=== PATIENT | female | born 1945 | race Caucasian/White ===

== ENCOUNTER 2020-04-17 19:26 | Inpatient (IN) ==
[2020-04-17] MEDS ORDERED: Ondansetron 4 MG/2 ML VIAL IVP PRN (23:20)
[2020-04-17] MEDS ORDERED: Naloxone 0.4 MG/ML INJ IVP PRN (23:20)
[2020-04-17] MEDS ORDERED: Ringers Solution, Lactated 1,000 ML IVC SCH (23:30)
[2020-04-18 02:58] LABS: Hematocrit 43.4 % (35.3-44.9); Hemoglobin 14.3 g/dL (11.5-15.4); Lymphocytes # 0.7 K/mcL (0.6-4.6); Lymphocytes % 16.8 %; Mean Corpuscular HGB Conc 32.9 g/dL (31.6-35.5); Mean Corpuscular Hemoglobin 30.4 pg (28.0-33.3); Mean Corpuscular Volume 92.3 fL (83.0-100.0); Mean Platelet Volume 11.5 fL (9.4-12.4); Monocytes # 0.1 K/mcL (0.0-1.3); Monocytes % 3.3 %; Red Cell Distribution Width 12.8 % (11.5-14.5); Segmented Neutrophils % 79.9 %; White Blood Count 3.9 K/mcL (4.3-11.1)
[2020-04-18 02:59] LABS: Neutrophils # 3.1 K/mcL (1.6-8.9); Platelet Count 95 K/mcL (140-400)
[2020-04-18 03:06] LABS: INR 1.1; Prothrombin Time 12.3 Seconds (9.4-12.1)
[2020-04-18 03:42] LABS: Ferritin 1233 ng/mL (10-120); Troponin I < 0.03 ng/mL (< 0.04)
[2020-04-18 03:54] LABS: Alanine Aminotransferase 17 Units/L (7-52); Albumin 3.6 g/dL (3.5-5.7); Albumin/Globulin Ratio 1.1 (1.1-2.2); Alkaline Phosphatase 78 Units/L (34-104); Aspartate Amino Transferase 37 Units/L (13-39); BUN/Creatinine Ratio 27 (6-26); Bilirubin,Total 0.4 mg/dL (0.3-1.0); Blood Urea Nitrogen 33 mg/dL (8-23); C-Reactive Protein 87 mg/L (Less than 10); Calcium 8.6 mg/dL (8.6-10.3); Carbon Dioxide 16 mEq/L (23-29); Chloride 107 mEq/L (98-107); Globulin 3.3 g/dL (2.4-3.5); Glucose 164 mg/dL (70-105); Lactate Dehydrogenase 335 Units/L (140-271); Magnesium 1.8 mg/dL (1.6-2.6); Osmolality,Calculated 297 (280-300); Phosphorous 4.2 mg/dL (2.7-4.5); Potassium 4.4 mEq/L (3.5-5.1); Sodium 138 mEq/L (136-145); Total Protein 6.9 g/dL (6.4-8.9); eGFR For African Americans 52 (> 60); eGFR For Non-African Americans 43 (> 60)
[2020-04-18] MEDS: *HR* Enoxaparin 40 MG/0.4 ML SYRINGE SQ SCH (05:13)
[2020-04-18] MEDS ORDERED: GuaiFENesin/Dextromethorphan TABLET PO PRN (07:45)
[2020-04-18] MEDS ORDERED: Dexamethasone Sodium Phos/PF 10 MG/ML VIAL IVP SCH (09:00)
[2020-04-18 11:43] LABS: Protein/Creatinine Ratio,Urine 0.38 mg/mg (0.00-0.20)
[2020-04-18 11:58] LABS: Bacteria,Urine Few per hpf (None-Few); Bilirubin,Urine Negative (Negative); Blood,Urine Small (Negative); Clarity,Urine Turbid (Clear); Color,Urine Yellow (Yellow); Glucose,Urine (UA) Normal (Normal); Ketones,Urine Negative (Negative); Leukocyte Esterase,Urine Large (Negative); Mucus,Urine Few per lpf (None-Few); Nitrite,Urine Positive (Negative); Protein,Urine 30 mg/dL (Neg-Trace); Squamous Epithelial Cell,Urine Few per hpf (None-Few); Urobilinogen,Urine Normal (Normal); WBC,Urine TNTC per hpf (0-3)
[2020-04-18] MEDS ORDERED: Remdesivir 200 MG in 0.9 % Sodium Chloride 100 ML IVPB ONE (17:00)
[2020-04-19 03:39] LABS: Hemoglobin 14.3 g/dL (11.5-15.4); Platelet Count 115 K/mcL (140-400); Red Cell Distribution Width 12.8 % (11.5-14.5)
[2020-04-19 03:41] LABS: Basophils % 0.6 %; Eosinophils % 0.3 %; Hematocrit 45.2 % (35.3-44.9); Immature Granulocytes % 0.6 % (0-4); Lymphocytes % 14.2 %; Mean Corpuscular HGB Conc 31.6 g/dL (31.6-35.5); Mean Corpuscular Hemoglobin 30.5 pg (28.0-33.3); Mean Corpuscular Volume 96.4 fL (83.0-100.0); Mean Platelet Volume 11.7 fL (9.4-12.4); Monocytes # 0.6 K/mcL (0.0-1.3); Monocytes % 8.8 %; Neutrophils # 5.5 K/mcL (1.6-8.9); Red Blood Count 4.69 M/mcL (3.82-4.97); Segmented Neutrophils % 75.5 %; White Blood Count 7.3 K/mcL (4.3-11.1)
[2020-04-19 03:44] LABS: Fibrinogen 448 mg/dL (169-393)
[2020-04-19 03:46] LABS: D-Dimer 1201 ng/mLFEU (0-500)
[2020-04-19 04:07] LABS: Platelet Estimate Slight Decrease (Normal)
[2020-04-19 04:29] LABS: Alanine Aminotransferase 13 Units/L (7-52); Albumin 3.3 g/dL (3.5-5.7); Alkaline Phosphatase 83 Units/L (34-104); Aspartate Amino Transferase 36 Units/L (13-39); BUN/Creatinine Ratio 43 (6-26); Bilirubin,Total 0.4 mg/dL (0.3-1.0); Blood Urea Nitrogen 42 mg/dL (8-23); Calcium 8.5 mg/dL (8.6-10.3); Carbon Dioxide 15 mEq/L (23-29); Chloride 110 mEq/L (98-107); Ferritin 1324 ng/mL (10-120); Globulin 3.2 g/dL (2.4-3.5); Glucose 182 mg/dL (70-105); Lactate Dehydrogenase 380 Units/L (140-271); Osmolality,Calculated 301 (280-300); Phosphorous 2.9 mg/dL (2.7-4.5); Potassium 4.4 mEq/L (3.5-5.1); Sodium 138 mEq/L (136-145); Total Protein 6.5 g/dL (6.4-8.9); eGFR For African Americans > 60 (> 60); eGFR For Non-African Americans 56 (> 60)
[2020-04-19] MEDS: *HR* Enoxaparin 40 MG/0.4 ML SYRINGE SQ SCH (05:37)
[2020-04-19] MEDS: Acetaminophen 325 MG TABLET PO PRN ×2 (08:21→20:02)
[2020-04-19] MEDS: Loratadine 10 MG TABLET PO SCH (08:21)
[2020-04-19] MEDS: Ipratropium 1 PUFF INHALER IH SCH ×4 (11:15→23:43)
[2020-04-19] MEDS: Artificial Tears SOLN 15 ML BOTTLE BOTH EYES SCH ×2 (15:23→20:05)
[2020-04-19] MEDS: Saline Nasal Spray 44 ML BOTTLE NS SCH ×2 (15:23→20:06)
[2020-04-19] MEDS ORDERED: Furosemide 40 MG/4 ML VIAL IVP ONE (15:29)
[2020-04-19] MEDS: Remdesivir 100 MG in 0.9 % Sodium Chloride 100 ML IVPB SCH (17:31)
[2020-04-20] MEDS: Ipratropium 1 PUFF INHALER IH SCH ×5 (04:12→19:50)
[2020-04-20] MEDS: *HR* Enoxaparin 40 MG/0.4 ML SYRINGE SQ SCH (05:42)
[2020-04-20 07:05] LABS: Fibrinogen 421 mg/dL (169-393)
[2020-04-20 07:11] LABS: D-Dimer 1393 ng/mLFEU (0-500)
[2020-04-20 07:34] LABS: Basophils % 0.2 %; Hematocrit 44.3 % (35.3-44.9); Hemoglobin 14.4 g/dL (11.5-15.4); Immature Granulocytes % 0.9 % (0-4); Immature Platelets 9.7 % (1.1-6.1); Lymphocytes % 10.9 %; Mean Corpuscular HGB Conc 32.5 g/dL (31.6-35.5); Mean Corpuscular Hemoglobin 30.3 pg (28.0-33.3); Mean Corpuscular Volume 93.3 fL (83.0-100.0); Mean Platelet Volume 11.9 fL (9.4-12.4); Monocytes # 0.8 K/mcL (0.0-1.3); Monocytes % 8.3 %; Neutrophils # 7.3 K/mcL (1.6-8.9); Platelet Count 124 K/mcL (140-400); Red Blood Count 4.75 M/mcL (3.82-4.97); Red Cell Distribution Width 12.5 % (11.5-14.5); Segmented Neutrophils % 79.7 %; White Blood Count 9.2 K/mcL (4.3-11.1)
[2020-04-20 08:00] LABS: BUN/Creatinine Ratio 52 (6-26); Blood Urea Nitrogen 49 mg/dL (8-23); Calcium 8.9 mg/dL (8.6-10.3); Carbon Dioxide 23 mEq/L (23-29); Chloride 103 mEq/L (98-107); Glucose 154 mg/dL (70-105); Magnesium 2.2 mg/dL (1.6-2.6); Osmolality,Calculated 302 (280-300); Sodium 138 mEq/L (136-145); eGFR For African Americans > 60 (> 60); eGFR For Non-African Americans 58 (> 60)
[2020-04-20] MEDS: Saline Nasal Spray 44 ML BOTTLE NS SCH ×3 (10:30→21:20)
[2020-04-20] MEDS: Loratadine 10 MG TABLET PO SCH (10:30)
[2020-04-20] MEDS: Artificial Tears SOLN 15 ML BOTTLE BOTH EYES SCH ×3 (10:30→21:20)
[2020-04-20 15:48] LABS: Alanine Aminotransferase 24 Units/L (7-52); Albumin 3.6 g/dL (3.5-5.7); Albumin/Globulin Ratio 1.1 (1.1-2.2); Alkaline Phosphatase 87 Units/L (34-104); Aspartate Amino Transferase 44 Units/L (13-39); Bilirubin,Direct 0.1 mg/dL (0.0-0.2); Bilirubin,Indirect 0.5 mg/dL (0.0-1.0); Bilirubin,Total 0.6 mg/dL (0.3-1.0); Globulin 3.4 g/dL (2.4-3.5)
[2020-04-20] MEDS: Remdesivir 100 MG in 0.9 % Sodium Chloride 100 ML IVPB SCH (16:52)
[2020-04-20] MEDS ORDERED: Furosemide 40 MG/4 ML VIAL IVP ONE (17:38)
[2020-04-21] MEDS: Ipratropium 1 PUFF INHALER IH SCH ×7 (00:03→23:44)
[2020-04-21 03:22] LABS: Mean Corpuscular Hemoglobin 30.4 pg (28.0-33.3); Red Cell Distribution Width 12.5 % (11.5-14.5)
[2020-04-21 03:24] LABS: Basophils # 0.1 K/mcL (0.0-0.2); Eosinophils % 0.4 %; Hematocrit 48.4 % (35.3-44.9); Hemoglobin 16.1 g/dL (11.5-15.4); Immature Granulocytes % 2.7 % (0-4); Immature Platelets 14.7 % (1.1-6.1); Lymphocytes # 0.9 K/mcL (0.6-4.6); Lymphocytes % 9.6 %; Mean Corpuscular HGB Conc 33.3 g/dL (31.6-35.5); Mean Corpuscular Volume 91.5 fL (83.0-100.0); Mean Platelet Volume 12.2 fL (9.4-12.4); Monocytes # 0.9 K/mcL (0.0-1.3); Monocytes % 9.5 %; Neutrophils # 6.8 K/mcL (1.6-8.9); Red Blood Count 5.29 M/mcL (3.82-4.97); Segmented Neutrophils % 76.8 %; White Blood Count 8.9 K/mcL (4.3-11.1)
[2020-04-21 03:27] LABS: Fibrinogen 377 mg/dL (169-393)
[2020-04-21 03:28] LABS: D-Dimer 1446 ng/mLFEU (0-500)
[2020-04-21 03:41] LABS: Albumin 3.8 g/dL (3.5-5.7); Albumin/Globulin Ratio 1.1 (1.1-2.2); Bilirubin,Direct 0.2 mg/dL (0.0-0.2); Bilirubin,Indirect 0.5 mg/dL (0.0-1.0); Bilirubin,Total 0.7 mg/dL (0.3-1.0); Globulin 3.6 g/dL (2.4-3.5); Total Protein 7.4 g/dL (6.4-8.9)
[2020-04-21 04:04] LABS: BUN/Creatinine Ratio 47 (6-26); Blood Urea Nitrogen 44 mg/dL (8-23); Calcium 8.7 mg/dL (8.6-10.3); Carbon Dioxide 19 mEq/L (23-29); Chloride 104 mEq/L (98-107); Glucose 171 mg/dL (70-105); Magnesium 2.1 mg/dL (1.6-2.6); Osmolality,Calculated 299 (280-300); Potassium 3.9 mEq/L (3.5-5.1); Sodium 137 mEq/L (136-145); eGFR For African Americans > 60 (> 60); eGFR For Non-African Americans 59 (> 60)
[2020-04-21 04:12] LABS: Platelet Count 92 K/mcL (140-400)
[2020-04-21] MEDS: *HR* Enoxaparin 40 MG/0.4 ML SYRINGE SQ SCH (05:08)
[2020-04-21] MEDS: Loratadine 10 MG TABLET PO SCH (08:37)
[2020-04-21] MEDS: Saline Nasal Spray 44 ML BOTTLE NS SCH ×3 (08:59→21:59)
[2020-04-21] MEDS: Artificial Tears SOLN 15 ML BOTTLE BOTH EYES SCH ×3 (08:59→21:59)
[2020-04-21] MEDS: Remdesivir 100 MG in 0.9 % Sodium Chloride 100 ML IVPB SCH (17:22)
[2020-04-21] MEDS: Furosemide 40 MG/4 ML VIAL IVP SCH (21:18)
[2020-04-21] MEDS ORDERED: *HR* LORazepam 2 MG/ML VIAL IVP ONE (22:35)
[2020-04-22] MEDS: Ipratropium 1 PUFF INHALER IH SCH ×6 (03:45→23:05)
[2020-04-22] MEDS: *HR* Enoxaparin 40 MG/0.4 ML SYRINGE SQ SCH (05:09)
[2020-04-22 05:52] LABS: Basophils # 0.1 K/mcL (0.0-0.2); Basophils % 0.5 %; Hematocrit 47.9 % (35.3-44.9); Hemoglobin 16.1 g/dL (11.5-15.4); Immature Granulocytes % 2.2 % (0-4); Lymphocytes # 1.2 K/mcL (0.6-4.6); Lymphocytes % 7.5 %; Mean Corpuscular HGB Conc 33.6 g/dL (31.6-35.5); Mean Corpuscular Hemoglobin 30.3 pg (28.0-33.3); Mean Corpuscular Volume 90.2 fL (83.0-100.0); Mean Platelet Volume 11.2 fL (9.4-12.4); Monocytes # 1.5 K/mcL (0.0-1.3); Monocytes % 9.5 %; Neutrophils # 12.7 K/mcL (1.6-8.9); Platelet Count 155 K/mcL (140-400); Red Blood Count 5.31 M/mcL (3.82-4.97); Red Cell Distribution Width 12.5 % (11.5-14.5); Segmented Neutrophils % 80.3 %
[2020-04-22 05:57] LABS: White Blood Count 15.8 K/mcL (4.3-11.1)
[2020-04-22 06:08] LABS: Alanine Aminotransferase 49 Units/L (7-52); Albumin 3.7 g/dL (3.5-5.7); Alkaline Phosphatase 92 Units/L (34-104); Aspartate Amino Transferase 53 Units/L (13-39); BUN/Creatinine Ratio 43 (6-26); Bilirubin,Direct 0.2 mg/dL (0.0-0.2); Bilirubin,Indirect 0.5 mg/dL (0.0-1.0); Bilirubin,Total 0.7 mg/dL (0.3-1.0); Blood Urea Nitrogen 43 mg/dL (8-23); Calcium 8.9 mg/dL (8.6-10.3); Carbon Dioxide 25 mEq/L (23-29); Chloride 102 mEq/L (98-107); Globulin 3.7 g/dL (2.4-3.5); Glucose 165 mg/dL (70-105); Magnesium 2.2 mg/dL (1.6-2.6); Osmolality,Calculated 303 (280-300); Potassium 3.9 mEq/L (3.5-5.1); Sodium 139 mEq/L (136-145); Total Protein 7.4 g/dL (6.4-8.9); eGFR For African Americans > 60 (> 60); eGFR For Non-African Americans 55 (> 60)
[2020-04-22 06:13] LABS: Fibrinogen 370 mg/dL (169-393)
[2020-04-22 06:15] LABS: D-Dimer 1539 ng/mLFEU (0-500)
[2020-04-22] MEDS: Furosemide 40 MG/4 ML VIAL IVP SCH ×2 (09:26→20:53)
[2020-04-22] MEDS: Loratadine 10 MG TABLET PO SCH (09:26)
[2020-04-22] MEDS: Artificial Tears SOLN 15 ML BOTTLE BOTH EYES SCH ×3 (09:27→20:54)
[2020-04-22] MEDS: Saline Nasal Spray 44 ML BOTTLE NS SCH ×3 (09:27→20:54)
[2020-04-22] MEDS: Doxycycline 100 MG in 0.9 % Sodium Chloride Mini Bag 100 ML IVPB SCH ×2 (09:35→20:52)
[2020-04-22] MEDS: Morphine Sulfate 2 MG/ML SYRINGE IVP PRN ×2 (11:12→21:37)
[2020-04-22] MEDS: *HR* LORazepam 2 MG/ML VIAL IVP PRN (16:33)
[2020-04-22] MEDS: Remdesivir 100 MG in 0.9 % Sodium Chloride 100 ML IVPB SCH (18:14)
[2020-04-23] MEDS: *HR* LORazepam 2 MG/ML VIAL IVP PRN ×4 (00:45→23:26)
[2020-04-23] MEDS: Ipratropium 1 PUFF INHALER IH SCH ×5 (03:47→20:16)
[2020-04-23] MEDS: Morphine Sulfate 2 MG/ML SYRINGE IVP PRN ×2 (04:12→19:35)
[2020-04-23 04:51] LABS: Basophils # 0.1 K/mcL (0.0-0.2); Basophils % 0.4 %; Hematocrit 51.5 % (35.3-44.9); Hemoglobin 17.6 g/dL (11.5-15.4); Immature Granulocytes % 2.2 % (0-4); Lymphocytes # 0.8 K/mcL (0.6-4.6); Lymphocytes % 5.3 %; Mean Corpuscular HGB Conc 34.2 g/dL (31.6-35.5); Mean Corpuscular Volume 90.7 fL (83.0-100.0); Mean Platelet Volume 11.3 fL (9.4-12.4); Monocytes # 1.1 K/mcL (0.0-1.3); Neutrophils # 13.3 K/mcL (1.6-8.9); Platelet Count 155 K/mcL (140-400); Red Blood Count 5.68 M/mcL (3.82-4.97); Red Cell Distribution Width 12.5 % (11.5-14.5); Segmented Neutrophils % 85.1 %; White Blood Count 15.6 K/mcL (4.3-11.1)
[2020-04-23 04:54] LABS: Fibrinogen 468 mg/dL (169-393)
[2020-04-23 05:00] LABS: D-Dimer 6798 ng/mLFEU (0-500)
[2020-04-23 05:04] LABS: BUN/Creatinine Ratio 48 (6-26); Blood Urea Nitrogen 48 mg/dL (8-23); Calcium 9.1 mg/dL (8.6-10.3); Carbon Dioxide 23 mEq/L (23-29); Chloride 102 mEq/L (98-107); Glucose 181 mg/dL (70-105); Magnesium 2.1 mg/dL (1.6-2.6); Osmolality,Calculated 309 (280-300); Potassium 3.7 mEq/L (3.5-5.1); Sodium 141 mEq/L (136-145); eGFR For African Americans > 60 (> 60); eGFR For Non-African Americans 54 (> 60)
[2020-04-23] MEDS: Doxycycline 100 MG in 0.9 % Sodium Chloride Mini Bag 100 ML IVPB SCH ×2 (05:14→18:04)
[2020-04-23] MEDS: *HR* Enoxaparin 40 MG/0.4 ML SYRINGE SQ SCH (05:15)
[2020-04-23] MEDS: Furosemide 40 MG/4 ML VIAL IVP SCH ×2 (08:21→19:55)
[2020-04-23] MEDS: Saline Nasal Spray 44 ML BOTTLE NS SCH ×3 (09:04→19:56)
[2020-04-23] MEDS: Artificial Tears SOLN 15 ML BOTTLE BOTH EYES SCH ×3 (09:05→21:05)
[2020-04-23] MEDS: Sennosides/Docusate Sodium TABLET PO SCH (09:05)
[2020-04-23] MEDS: Loratadine 10 MG TABLET PO SCH (09:05)
[2020-04-23] MEDS: levoFLOXacin 750 MG/150 ML 750 MG/150 ML BAG IVPB SCH (13:48)
[2020-04-24] MEDS: Ipratropium 1 PUFF INHALER IH SCH ×6 (00:22→20:12)
[2020-04-24 02:28] LABS: Basophils # 0.1 K/mcL (0.0-0.2); Basophils % 0.5 %; Hematocrit 54.4 % (35.3-44.9); Hemoglobin 18.6 g/dL (11.5-15.4); Immature Granulocytes % 2.3 % (0-4); Lymphocytes # 0.4 K/mcL (0.6-4.6); Lymphocytes % 2.8 %; Mean Corpuscular HGB Conc 34.2 g/dL (31.6-35.5); Mean Corpuscular Hemoglobin 30.9 pg (28.0-33.3); Mean Corpuscular Volume 90.4 fL (83.0-100.0); Mean Platelet Volume 11.3 fL (9.4-12.4); Monocytes # 0.8 K/mcL (0.0-1.3); Monocytes % 5.7 %; Neutrophils # 12.2 K/mcL (1.6-8.9); Platelet Count 164 K/mcL (140-400); Red Blood Count 6.02 M/mcL (3.82-4.97); Red Cell Distribution Width 12.9 % (11.5-14.5); Segmented Neutrophils % 88.7 %; White Blood Count 13.7 K/mcL (4.3-11.1)
[2020-04-24 02:37] LABS: Fibrinogen 652 mg/dL (169-393)
[2020-04-24 02:38] LABS: D-Dimer 2344 ng/mLFEU (0-500)
[2020-04-24 02:52] LABS: BUN/Creatinine Ratio 53 (6-26); Blood Urea Nitrogen 56 mg/dL (8-23); Calcium 9.3 mg/dL (8.6-10.3); Carbon Dioxide 24 mEq/L (23-29); Chloride 105 mEq/L (98-107); Glucose 267 mg/dL (70-105); Magnesium 2.1 mg/dL (1.6-2.6); Osmolality,Calculated 323 (280-300); Phosphorous 2.7 mg/dL (2.7-4.5); Potassium 3.6 mEq/L (3.5-5.1); Sodium 144 mEq/L (136-145); eGFR For African Americans > 60 (> 60); eGFR For Non-African Americans 51 (> 60)
[2020-04-24] MEDS: Doxycycline 100 MG in 0.9 % Sodium Chloride Mini Bag 100 ML IVPB SCH ×2 (05:48→20:01)
[2020-04-24] MEDS: *HR* Enoxaparin 40 MG/0.4 ML SYRINGE SQ SCH (05:49)
[2020-04-24] MEDS: *HR* LORazepam 2 MG/ML VIAL IVP PRN (06:05)
[2020-04-24] MEDS ORDERED: *HR* Dextrose 50 % in Water (Vial) 50 ML VIAL IVP PRN (07:34)
[2020-04-24] MEDS ORDERED: D5% in Water 1,000 ML IVC PRN (07:34)
[2020-04-24] MEDS ORDERED: Dextrose Gel 15 GM/37.5 ML TUBE PO PRN ×2 (07:34)
[2020-04-24] MEDS: Artificial Tears SOLN 15 ML BOTTLE BOTH EYES SCH ×3 (09:25→19:59)
[2020-04-24] MEDS: Loratadine 10 MG TABLET PO SCH (09:25)
[2020-04-24] MEDS: Saline Nasal Spray 44 ML BOTTLE NS SCH ×3 (09:26→21:50)
[2020-04-24] MEDS: Sennosides/Docusate Sodium TABLET PO SCH (09:26)
[2020-04-24] MEDS: levoFLOXacin 750 MG/150 ML 750 MG/150 ML BAG IVPB SCH (09:39)
[2020-04-24] MEDS: Furosemide 40 MG/4 ML VIAL IVP SCH ×2 (09:40→20:00)
[2020-04-24] MEDS: Insulin LISPRO 300 UNITS/3 ML VIAL SUBQ SCH ×3 (13:29→22:14)
[2020-04-24 17:06] LABS: ABG Base Excess 3 mEq/L (-2 to 3); ABG HCO3 26 mEq/L (21-27); ABG Oxygen Saturation 92 % (95-98); ABG PCO2 33 mmHg (35-45); ABG PO2 58 mmHg (85-104); ABG TCO2 27 mEq/L (20-26)
[2020-04-25] MEDS: Ipratropium 1 PUFF INHALER IH SCH ×7 (00:12→23:51)
[2020-04-25 03:39] LABS: Basophils # 0.1 K/mcL (0.0-0.2); Basophils % 0.4 %; Hemoglobin 18.9 g/dL (11.5-15.4); Immature Granulocytes % 1.4 % (0-4); Lymphocytes # 0.6 K/mcL (0.6-4.6); Lymphocytes % 3.7 %; Mean Corpuscular HGB Conc 33.9 g/dL (31.6-35.5); Mean Corpuscular Hemoglobin 30.3 pg (28.0-33.3); Mean Corpuscular Volume 89.4 fL (83.0-100.0); Mean Platelet Volume 12.5 fL (9.4-12.4); Monocytes # 0.8 K/mcL (0.0-1.3); Monocytes % 4.9 %; Neutrophils # 14.5 K/mcL (1.6-8.9); Platelet Count 203 K/mcL (140-400); Red Blood Count 6.24 M/mcL (3.82-4.97); Red Cell Distribution Width 13.4 % (11.5-14.5); Segmented Neutrophils % 89.6 %; White Blood Count 16.2 K/mcL (4.3-11.1)
[2020-04-25 03:42] LABS: Hematocrit 55.8 % (35.3-44.9)
[2020-04-25 03:49] LABS: Fibrinogen 652 mg/dL (169-393)
[2020-04-25 03:50] LABS: D-Dimer 2515 ng/mLFEU (0-500)
[2020-04-25 04:04] LABS: Calcium 9.9 mg/dL (8.6-10.3); Magnesium 2.4 mg/dL (1.6-2.6); Potassium 3.5 mEq/L (3.5-5.1)
[2020-04-25 05:24] LABS: Estimated Average Glucose 140 mg/dl; Hemoglobin A1C 6.5 %
[2020-04-25] MEDS: Doxycycline 100 MG in 0.9 % Sodium Chloride Mini Bag 100 ML IVPB SCH (05:50)
[2020-04-25] MEDS ORDERED: *HR* Enoxaparin 40 MG/0.4 ML SYRINGE SQ SCH (09:00)
[2020-04-25] MEDS: Loratadine 10 MG TABLET PO SCH (09:11)
[2020-04-25] MEDS: Sennosides/Docusate Sodium TABLET PO SCH (09:11)
[2020-04-25] MEDS: Cholecalciferol (D-3) 1,000 UNIT (25MCG) TABLET PO SCH (09:12)
[2020-04-25] MEDS: levoFLOXacin 750 MG/150 ML 750 MG/150 ML BAG IVPB SCH (09:20)
[2020-04-25] MEDS: Insulin LISPRO 300 UNITS/3 ML VIAL SUBQ SCH ×4 (09:22→20:14)
[2020-04-25] MEDS: Dexamethasone Sodium Phos/PF 10 MG/ML VIAL IVP SCH (09:23)
[2020-04-25] MEDS: Artificial Tears SOLN 15 ML BOTTLE BOTH EYES SCH ×3 (09:24→20:12)
[2020-04-25] MEDS: Saline Nasal Spray 44 ML BOTTLE NS SCH ×3 (09:25→20:12)
[2020-04-25] MEDS: D5% in Water 1,000 ML IVC SCH (15:23)
[2020-04-25] MEDS: *HR* LORazepam 2 MG/ML VIAL IVP PRN (19:00)
[2020-04-25] MEDS ORDERED: Insulin DETEMIR 100 UNIT/ML X5UNITS SUBQ SCH (21:00)
[2020-04-26] MEDS: *HR* LORazepam 2 MG/ML VIAL IVP PRN ×3 (00:59→18:10)
[2020-04-26] MEDS: Ipratropium 1 PUFF INHALER IH SCH ×3 (04:01→11:28)
[2020-04-26] MEDS: D5% in Water 1,000 ML IVC SCH (05:46)
[2020-04-26] MEDS ORDERED: *HR* Enoxaparin 40 MG/0.4 ML SYRINGE SQ SCH (06:00)
[2020-04-26] MEDS: Loratadine 10 MG TABLET PO SCH (07:53)
[2020-04-26] MEDS: Sennosides/Docusate Sodium TABLET PO SCH (07:53)
[2020-04-26] MEDS: Cholecalciferol (D-3) 1,000 UNIT (25MCG) TABLET PO SCH (07:53)
[2020-04-26] MEDS: Saline Nasal Spray 44 ML BOTTLE NS SCH (07:53)
[2020-04-26] MEDS: Insulin LISPRO 300 UNITS/3 ML VIAL SUBQ SCH ×2 (08:03→12:54)
[2020-04-26] MEDS: Dexamethasone Sodium Phos/PF 10 MG/ML VIAL IVP SCH (08:03)
[2020-04-26] MEDS: Artificial Tears SOLN 15 ML BOTTLE BOTH EYES SCH (08:04)
[2020-04-26 10:55] VITALS: BP 115/82
[2020-04-26 11:31] LABS: VBG Ionized Calcium 0.74 mmol/L (1.15-1.35)
[2020-04-26 11:37] LABS: INR 1.5; Prothrombin Time 17.1 Seconds (9.4-12.1)
[2020-04-26 11:38] LABS: Hemoglobin 18.7 g/dL (11.5-15.4); Mean Corpuscular HGB Conc 33.8 g/dL (31.6-35.5); Mean Corpuscular Hemoglobin 30.8 pg (28.0-33.3); Mean Corpuscular Volume 91.3 fL (83.0-100.0); Mean Platelet Volume 12.5 fL (9.4-12.4); Platelet Count 176 K/mcL (140-400); Red Blood Count 6.07 M/mcL (3.82-4.97); Red Cell Distribution Width 13.6 % (11.5-14.5)
[2020-04-26 11:39] LABS: Activated Partial Thrombo Time 25.4 Seconds (26.0-36.0)
[2020-04-26 11:41] LABS: Hematocrit 55.4 % (35.3-44.9); White Blood Count 24.9 K/mcL (4.3-11.1)
[2020-04-26 11:49] LABS: Albumin 3.2 g/dL (3.5-5.7); Albumin/Globulin Ratio 0.7 (1.1-2.2); Bilirubin,Total 0.9 mg/dL (0.3-1.0); Calcium 9.7 mg/dL (8.6-10.3); Globulin 4.5 g/dL (2.4-3.5); Magnesium 2.9 mg/dL (1.6-2.6); Phosphorous 4.2 mg/dL (2.7-4.5); Potassium 2.9 mEq/L (3.5-5.1); Total Protein 7.7 g/dL (6.4-8.9)
[2020-04-26] MEDS ORDERED: Haloperidol Lactate 5 MG/ML VIAL IVP PRN (15:51)
[2020-04-26] MEDS ORDERED: Atropine 1% Opth Drops 100 DROP/5 ML BOTTLE SL PRN (15:51)
[2020-04-26] MEDS: Morphine Sulfate 2 MG/ML SYRINGE IVP PRN ×2 (16:18→17:28)
[2020-04-27] MEDS ORDERED: *HR* Enoxaparin 30 MG/0.3 ML SYRINGE SQ SCH (06:00)
[2020-04-27] MEDS ORDERED: levoFLOXacin 500 MG/100 ML 500 MG/100 ML BAG IVPB SCH (09:00)
[2020-04-27] MEDS ORDERED: levoFLOXacin 750 MG/150 ML 750 MG/150 ML BAG IVPB SCH (09:00)
== END 2020-04-26 20:50 | disposition expired | DRG 177 ==
LOC: 2NENU → SUATTDRO 22:03 → OBSVTOIN 22:03
PROVIDERS: ADMIT Internal Medicine; ATTEND Pharmacist